=== PATIENT | male | born 1985 | race Caucasian/White ===

== ENCOUNTER 2019-09-29 03:56 | Inpatient (IN) ==
[2019-09-29] MEDS ORDERED: ATIVAN IV ONE ×2 (04:39→06:58)
[2019-09-29] MEDS ORDERED: LOPRESSOR IV ONE ×3 (04:39→08:23)
[2019-09-29] MEDS ORDERED: NS 1,000 ML IV ONE (04:40)
--- NOTE | 2019-09-29 04:58 | PROVIDER DOCUMENTATION ---
HPI-General Adult - General Chief Complaint: Overdose Stated Complaint: INGESTIION Time Seen by Provider: 09/29/19 04:23 Source: patient, police Allergies/Adverse Reactions: Patient Allergies Allergy/AdvReac Type Severity Reaction Status Date / Time cephalexin monohydrate * Allergy Unknown Verified 05/12/15 17:21 [From Keflex] Home Medications: Home Medication List Medication Instructions Recorded Confirmed Last Taken Type Clindamycin [Cleocin] 150 mg PO Q6HR #30 capsule 05/12/15 Unknown Rx Hydrocodone/APAP 7.5 mg/325 mg 1 each PO Q6H PRN PRN #14 tablet 05/12/15 Unknown Rx [[place]-7.5] - History of Present Illness -Gen Adult Nature of Presenting Problems: BROUGHT OVER FROM [facility] AFTER C/O CP TO CUSTODIAL NURSE , THEN ADMITTING TO INGESTION 1 GRAM 'ICE' AMPHETAMINE AND 2 SUBOXONE, PT C/O VIBRANT COLORS THEN POOR VISION, FEELS LIKE ON LSD TRIP, SEEMS ANGRY, AGITATED, FLIGHT OF IDEAS, SWEATY , HYPER. Associated Symptoms: reports: chest pain, diaphoresis. denies: seizure, vomiting Review of Systems - Adult - REVIEW OF SYSTEMS - ADULT Constitutional: reports: no symptoms reported. denies: chills, fever Eyes: reports: no symptoms reported Ears, Nose, Mouth & Throat: reports: no symptoms reported Cardiovascular: reports: see HPI, chest pain Respiratory: reports: see HPI. denies: shortness of breath, wheezing Gastrointestinal: reports: see HPI. denies: abdominal pain, vomiting Genitourinary: reports: no symptoms reported Musculoskeletal: reports: no symptoms reported Integumentary: reports: no symptoms reported Neurological: reports: no symptoms reported. denies: slurred speech Psychiatric: reports: no symptoms reported Endocrine: reports: no symptoms reported Hematologic/Lymphatic: reports: no symptoms reported Allergic/Immunologic: reports: no symptoms reported All Other Systems: Reviewed and Negative Past History - Adult - PAST MEDICAL HISTORY-ADULT Review of Records: reports: Nursing Assessment Review, Medications Reviewed, Social history reviewed & non-contributory. Major Childhood Illnesses: reports: denies history Cardiovascular: reports: denies history Respiratory: reports: denies history Gastrointestinal: reports: denies history Obstetrical/Gynecological: reports: denies history Genitourinary: reports: denies history Musculoskeletal: reports: denies history Neurological: reports: denies history Psychiatric: reports: other (HAS BEEN ADMITTED HERE TO ICU BEFORE FOR ANOTHER OVERDOSE. HEP C +) Endocrine/Immune: reports: denies history Other Conditions: reports: denies history - IMMUNIZATION STATUS Childhood Immunizations: See Nurse Assessment Flu Vaccine: See Nurse Assessment Physical Exam-General - PHYSICAL EXAM-ADULT Initial Vital Signs Reviewed: Yes (TACHY, HTN) - CONSTITUTIONAL General Appearance: alert, mild distress, other (HYPERACTIVE) - EYES Eyes: PERRL/EOMI - HEAD, EARS, NOSE, MOUTH & THROAT HENMT: normocephalic/atraumatic, moist mucous membranes - NECK Neck: non-tender, full range of motion, supple - RESPIRATORY Respiratory: lungs clear, normal breath sounds. negative: accessory muscle use, crackles, stridor, wheezing - CARDIOVASCULAR Cardiovascular: regular rate, rhythm, no murmur, tachycardia - GASTROINTESTINAL (ABDOMEN) Abdominal Exam: normal bowel sounds, non tender, soft - MUSCULOSKELETAL Extremity: normal range of motion, non-tender, normal gait, no pedal edema, normal capillary refill - SKIN Integumentary: normal color, normal turgor, diaphoresis. negative: cyanosis - NEUROLOGIC Neurologic: grossly normal, no motor/sensory deficits. negative: aphasia, facial droop, focal weakness - PSYCHIATRIC Psych/Mental Status: oriented x 3, anxious, disheveled, other (AGITATED, HYPERACTIVE, RAPID SPEECH IS NOT SLURRED, FLIGHT OF IDEAS) Progress - PLAN OF CARE/RESULTS Progress/Plan/Lab Results: Vital Signs - 8 hr 09/29/19 04:02 Temperature 97.8 F Pulse Rate 124 H Respiratory Rate 18 Blood Pressure 165/100 O2 Sat by Pulse Oximetry 98 Orders Category Date Time Status Cardiac Monitoring DIRECTED Care 09/29/19 04:36 Active Saline Loc NOW Care 09/29/19 04:37 Active CHEST-PORTABLE [RAD] Stat Exams 09/29/19 04:38 Ordered ACETAMINOPHEN [TDM] Stat Lab 09/29/19 04:37 Uncollected CBC WITH ELECTRONIC DIFF [HEME] Stat Lab 09/29/19 04:37 Uncollected COMPREHENSIVE METABOLIC PANEL [CHEM] Stat Lab 09/29/19 04:37 Ordered LACTATE, PLASMA [CHEM] Stat Lab 09/29/19 04:37 Uncollected MAGNESIUM [CHEM] Stat Lab 09/29/19 04:38 Uncollected TROPONIN T Stat Lab 09/29/19 04:38 Uncollected URINALYSIS W/POSS RFLX CULT [URINALYSIS] Stat Lab 09/29/19 04:38 Uncollected URINE DRUG SCREEN Stat Lab 09/29/19 04:38 Uncollected 0.9% Sodium Chloride Inj [Ns] 1,000 ml Med 09/29/19 04:40 Active IV 999 mls/hr Lorazepam [Ativan] Med 09/29/19 04:39 Discontinued 2 mg IV NOW ONE Metoprolol [Lopressor] Med 09/29/19 04:39 Discontinued 5 mg IV NOW ONE EKG [EKG] Stat Ther 09/29/19 04:37 Ordered Result Diagrams: 09/29/19 04:26 09/29/19 04:26 - REASSESSMENT Reassessment #1 Time Reassessed: 06:57 Status: improving (SL LESS AGITATED, STILL FLIGHT OF IDEAS. HR NOW 112, 155/104, WILL REDOSE LOPRESSOR 5MG.) Reassessment #2 Time Reassessed: 08:23 Status: unchanged (AGIAN UPT TO 161/135, HR 113, ORDER 3RD DOSE LOPRESSOR) - EKG 1 Time of EKG reading by physician:: 04:22 EKG Read and Signed by:: Moises Mena Rate: 120 Rhythm: NSR [place]: normal QRS: normal [place] Interval: normal ST Wave: normal (SINUS TACHYCARDIA) - XRAY 1 XRAY Study: Chest Impression: Normal (NO ACUTE CHANGES, NO EDEMA OR INFILTRATES) - CONSULTS/PCP/HOSPITALIST Notification #1 *Consult/PCP/Hospitalist*: REYNA VELEZ Time Discussed: 07:59 Consult Disposition: Admit - CHANGE OF SHIFT REPORT (ED Provider) 1 Report Given and Care Transferred to:: DR HOWARD Time of Transfer: 07:00 (ADMIT V BACK TO CUSTODIAL) Departure - Departure Date of Disposition Decision: 09/29/19 Time of Disposition Decision: 07:59 DIAGNOSIS: Tachycardia, Amphetamine overdose Drug Overdose Qualifiers: Encounter type: initial encounter Injury intent: accidental or unintentional Qualified Code(s): T50.901A - Poisoning by unspecified drugs, medicaments and biological substances, accidental (unintentional), initial encounter Hypertension Qualifiers: Hypertension type: other secondary hypertension Qualified Code(s): I15.8 - Other secondary hypertension Disposition: ADMITTED INPATIENT 09 Certified Medical Emergency: Emergent Condition: Fair Referrals and Follow-Ups: None,PCP [Primary Care Provider] - - Critical Care Note This patient required my direct & personal management of CC.: Yes Total Time (mins): 30 Critical Care Statement: This patient required my direct personal management to treat or rule out processes, the absence of which, could potentiallly result in sudden, clinically significant life or limb threatening deterioration. Attestation - Physician/ JESSIE Attestation The physician spent face to face time with patient:: Yes Advanced Practice Provider documentation review:: Supervising physician onsite and consulted in the evaluation and care of this patient. The physician did have a face to face encounter with the patient.
--- NOTE | 2019-09-29 05:06 | EKG Report ---
Test Performed on : 09/29/2019 04:11:36 AM Test Reason : CP Blood Pressure : / mmHG Vent. Rate : 120 BPM Atrial Rate : 120 BPM P-R Int : 130 ms QRS Dur : 084 ms QT Int : 320 ms P-R-T Axes : 022 021 046 degrees QTc Int : 452 ms Sinus tachycardia. with fusion complexes Otherwise normal ECG When compared with ECG of 29-APR-2014 06:14, fusion complexes are now present Unconfirmed Result
[2019-09-29 05:18] LABS: AGAP 17; ALB/GLOB RATIO 2.2; ALBUMIN 4.8 g/dL (3.5-5.0); ALKALINE PHOSPHATASE 98 U/L (32-122); BUN 12 mg/dL (8-22); CALCIUM 9.5 mg/dL (8.8-10.2); CHLORIDE 97 mmol/L (98-107); COSMO 274; CREATININE 1.1 mg/dL (0.7-1.2); ESTIMATED GFR > 60; GLUCOSE 105 mg/dL (70-104); GOT 37 U/L (10-34); GPT 48 U/L (10-44); POTASSIUM 3.7 mmol/L (3.5-5.1); SODIUM 137 mmol/L (136-145); TCO2 23 mmol/L (25-35)
[2019-09-29 06:05] LABS: URINE SOURCE CLEAN CATCH
[2019-09-29 06:14] LABS: BASO# 0.04 X1000 (0.0-0.2); BASO% 0.4 % (0.0-0.8); EOS# 0.14 X1000 (0.0-0.7); EOS% 1.4 % (0.0-10.0); HEMATOCRIT 43.1 % (42.0-52.0); HEMOGLOBIN 14.6 g/dL (14.0-18.0); LYMPH# 1.83 X1000 (1.2-3.4); LYMPH% 17.6 % (20.5-51.1); MCH 30.2 PG (27-31); MCHC 33.9 g/dL (33-37); MCV 89.2 FL (81-99); MONO# 1.23 X1000 (0.11-0.59); MONO% 11.9 % (1.7-9.3); MPV 8.9 FL (7.4-10.4); NEUT# 7.13 X1000 (1.4-6.5); NEUT% 68.7 % (42.2-75.2); PLT 359 X1000 (130-400); RBC 4.83 XMIL (4.7-6.1); WBC 10.37 X1000 (4.8-10.8)
[2019-09-29 06:14] LABS: BILIRUBIN URINE NEGATIVE (NEGATIVE); BLOOD URINE NEGATIVE (NEGATIVE); COLOR YELLOW; GLUCOSE URINE NEGATIVE (NEGATIVE); KETONE URINE 40 mg/dL (NEGATIVE); LEUKOCYTES URINE NEGATIVE (NEGATIVE); NITRITE URINE NEGATIVE (NEGATIVE); PROTEIN URINE 50 mg/dL (NEGATIVE); SP GRAVITY URINE 1.024; TURBIDITY URINE CLEAR (CLEAR); UROBILINOGEN URINE NORMAL (NORMAL)
[2019-09-29 06:16] LABS: UR EPITHELIAL CELLS <10 /HPF (<10); URINE BACTERIA NEGATIVE /HPF; URINE RBC <10 /HPF (<10); URINE WBC <10 /HPF (<10)
[2019-09-29 06:24] LABS: UR AMPHETAMINES QUAL PRESUMPTIVE POSITIVE (NONE DETECT); UR BARBITUATES QUAL NONE DETECTED (NONE DETECT); UR BENZODIAZEPIN QUAL NONE DETECTED (NONE DETECT); UR CANNABINOIDS QUAL PRESUMPTIVE POSITIVE (NONE DETECT); UR COCAINE QUAL NONE DETECTED (NONE DETECT); UR METHADONE QUAL NONE DETECTED (NONE DETECT); UR OPIATES QUAL PRESUMPTIVE POSITIVE (NONE DETECT); UR OXYCODONE QUAL NONE DETECTED (NONE DETECT); UR PCP QUAL NONE DETECTED (NONE DETECT)
[2019-09-29 06:24] LABS: ACETAMINOPHEN < 1.2 ug/mL (10-30); MAGNESIUM 1.8 mg/dL (1.5-2.7)
--- NOTE | 2019-09-29 07:39 | Diag Imaging Result Doc PS360 ---
EXAM: CHEST-PORTABLE 09/29/2019 HISTORY: CP TECHNIQUE: AP portable at 0506 COMMENT: There are no previous studies available for comparison. There is no evidence of acute cardiac or pulmonary disease. IMPRESSION: Normal chest. Electronically signed by Wade Rizo 09/29/2019 7:36 AM
[2019-09-29] MEDS ORDERED: TYLENOL PO PRN (08:09)
[2019-09-29] MEDS ORDERED: ZOFRAN IV PRN (08:09)
[2019-09-29] MEDS ORDERED: ATIVAN IV PRN (08:09)
[2019-09-29] MEDS: NS 1,000 ML IV SCH ×2 (09:32→17:25)
[2019-09-29] MEDS ORDERED: LOPRESSOR IV PRN (10:03)
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
[2019-09-29] MEDS: NICODERM PATCH TD SCH (11:39)
[2019-09-29] MEDS ORDERED: HALDOL IV ONE (12:29)
[2019-09-29] MEDS ORDERED: HALDOL IV PRN (12:30)
[2019-09-29] MEDS ORDERED: LABETALOL IV PRN (12:32)
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
[2019-09-29] MEDS: ATIVAN IV PRN (12:43)
--- NOTE | 2019-09-29 19:15 | HISTORY AND PHYSICAL ---
ADDENDUM: I have seen and examined Mr. Aguirre today. He was actually in the ICU at the time of the encounter. In the ICU, he was extremely belligerent and violent earlier. When I went in to see him, he said he was somewhere in [place], completely irrational in what his thought process was, and hallucinating as well. His current vitals: Blood pressure was 145/104, pulse of 112, temperature was 97.0 degrees. Patient was saturating about 94%. His lungs were clear. There were no obvious signs on physical exam of any disease process. 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 Did not have any coherent thought process, but he did not have any focal deficits. His chest x-ray was unremarkable on admission. His hand x-ray showed old fractures of the 4th and the 5th metacarpals on the right, healing of the distal 2nd metacarpal. His urine toxicology was positive for opioids, amphetamine, and cannabinoids. Alcohol was 0 in his serum. ASSESSMENT: 1. Altered mental status, most likely drug overdose. 2. Acute psychotic reaction, secondary to recreational drug use. 3. Hypertension, most likely related to medications. 4. Previous history of attention deficit hyperactivity disorder, anxiety, and situational depression. 5. Tobacco use and abuse. 6. Recreational drug use, with urine toxicology positive for opioids, amphetamine, and cannabinoids. For now, we are going to continue monitoring Mr. Aguirre in the ICU. We are going to give him 5 mg of Haldol and 2 of Ativan to keep him calm to prevent harming himself. We will continue with the intravenous fluids, and we will re-evaluate him in the morning and go from there. Please refer to the details of the History and Physical which has been dictated by the MILKER MACHINE in the chart. cc: Richard Andrews MD
[2019-09-30] MEDS: NS 1,000 ML IV SCH ×3 (00:49→10:07)
[2019-09-30] MEDS: ATIVAN IV PRN ×2 (05:16→10:31)
[2019-09-30 05:40] LABS: BASO# 0.02 X1000 (0.0-0.2); BASO% 0.4 % (0.0-0.8); EOS# 0.26 X1000 (0.0-0.7); EOS% 5.2 % (0.0-10.0); HEMATOCRIT 43.5 % (42.0-52.0); HEMOGLOBIN 14.3 g/dL (14.0-18.0); LYMPH# 1.69 X1000 (1.2-3.4); LYMPH% 33.5 % (20.5-51.1); MCH 30.1 PG (27-31); MCHC 32.9 g/dL (33-37); MCV 91.6 FL (81-99); MONO# 0.55 X1000 (0.11-0.59); MONO% 10.9 % (1.7-9.3); MPV 8.7 FL (7.4-10.4); NEUT# 2.52 X1000 (1.4-6.5); PLT 295 X1000 (130-400); RBC 4.75 XMIL (4.7-6.1); RDW 13.1 % (11.5-14.5); WBC 5.04 X1000 (4.8-10.8)
[2019-09-30 05:48] LABS: INR 0.98; PROTIME 13.1 Seconds (11.0-16.0)
[2019-09-30 05:49] LABS: PTT 34.1 Seconds (22.3-41.8)
[2019-09-30 06:00] LABS: AGAP 12; ALB/GLOB RATIO 1.7; ALBUMIN 3.9 g/dL (3.5-5.0); ALKALINE PHOSPHATASE 80 U/L (32-122); BUN 9 mg/dL (8-22); CALCIUM 8.6 mg/dL (8.8-10.2); CHLORIDE 106 mmol/L (98-107); COSMO 279; CREATININE 0.8 mg/dL (0.7-1.2); ESTIMATED GFR > 60; GLUCOSE 79 mg/dL (70-104); GOT 33 U/L (10-34); GPT 41 U/L (10-44); POTASSIUM 3.9 mmol/L (3.5-5.1); SODIUM 141 mmol/L (136-145); TCO2 23 mmol/L (25-35); TOTAL BILIRUBIN 1.17 mg/dL (0.20-1.00); TOTAL PROTEIN 6.2 g/dL (6.3-8.3)
--- NOTE | 2019-09-30 07:01 | EKG Report ---
Test Performed on : 09/30/2019 06:28:27 AM Test Reason : meth overdose Blood Pressure : / mmHG Vent. Rate : 083 BPM Atrial Rate : 083 BPM P-R Int : 160 ms QRS Dur : 084 ms QT Int : 392 ms P-R-T Axes : 041 011 039 degrees QTc Int : 460 ms Normal sinus rhythm. Normal ECG When compared with ECG of 29-SEP-2019 04:11, (Unconfirmed) fusion complexes are no longer present Unconfirmed Result
[2019-09-30] MEDS: NICODERM PATCH TD SCH (08:56)
[2019-09-30] MEDS ORDERED: PNEUMOVAX 23 IM ONE (11:00)
[2019-09-30] MEDS ORDERED: FLU VACCINE IM ONE (11:01)
[2019-09-30 12:29] VITALS: BP 142/97
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
== END 2019-09-30 12:25 | disposition home or self-care (01) | DRG 918 ==
LOC: ED 03:56 → ICU 08:40
PROVIDERS: ATTEND Internal Medicine